=== PATIENT | female | born 1970 | race Caucasian/White ===

== ENCOUNTER → 2019-07-20 12:30 | Outpatient (BNVA) | payer OTHER, SELFPAY | PROVIDERS: Family Provider Family Medicine; PCP Family Medicine; Referring Provider Family Medicine; Visit Provider Podiatrist Foot & Ankle Surgery | DX: L60.0 Ingrowing nail (principal); B35.1 Tinea unguium | CPT/HCPCS: 87210 ==

== ENCOUNTER 2021-11-28 12:34 | Outpatient (CLI) | payer OTHER, SELFPAY ==
--- NOTE | 2021-11-28 12:52 | CTR_ITS ---
PROCEDURE INFORMATION: Exam: CT Temporal Bones Without Contrast. Exam date and time: 11/28/2021 1:02 PM Age: 51 years old Clinical indication: Pain; Other: Ear; Prior surgery; Surgery type: Tubes; Additional info: Chronic serous otitis media, left ear TECHNIQUE: Imaging protocol: Computed tomography of the temporal bones without contrast. Radiation optimization: All CT scans at this facility use at least one of these dose optimization techniques: automated exposure control; mA and/or kV adjustment per patient size (includes targeted exams where dose is matched to clinical indication); or iterative reconstruction. COMPARISON: No relevant prior studies available. RADIATION DOSE METRICS: Total DLP (mGy-cm): 306.93 FINDINGS: Right inner ear: Normal. Right ossicles and middle ear: Normal. The middle ear ossicles are intact. Right external auditory canal: Normal. Right facial nerve canal: Normal. Right jugular foramen: No jugular dehiscence. Right carotid canal: No aberrant carotid canal. Right mastoid air cells: Normal. No mastoid effusions. Left inner ear: Normal. Left ossicles and middle ear: As best seen on series 11 images 48-51, there is a small focus of soft tissue in the left middle ear although as this is a very small focus of soft tissue, it is located within Prussak's space which appears slightly widened compared to the contralateral side. No bone erosion is identified. The left tympanic membrane is thickened. Left external auditory canal: Normal. Left facial nerve canal: Normal. Left jugular foramen: No jugular dehiscence. Left carotid canal: No aberrant carotid canal. Left mastoid air cells: Normal. No mastoid effusions. Soft tissues: CT/CT temporal bone wo con* [id number] IMPRESSION: Small amount of soft tissue in Prussak's space on the left which is slightly widened. The tympanic membrane is thickened. This could represent a early cholesteatoma. There is no bone erosion which would be more definitive.
== END 2021-11-28 12:35 | disposition home or self-care (01) ==
LOC: RAD 12:35
PROVIDERS: Family Provider Family Medicine; PCP Family Medicine; Visit Provider Specialist
DX: H65.22 Chronic serous otitis media, left ear (principal)
CPT/HCPCS: 70480

== ENCOUNTER 2022-01-06 13:21 | Outpatient (CLI) | payer OTHER, SELFPAY ==
--- NOTE | 2022-01-06 13:52 | ECG_ITS ---
[facility] Test Date: 2022-01-06 Pat Name: Alyx Hoang Department: Room: Gender: Female [employer]: : 1970 Requested By: Sarmad Skelton Order Number: [id number] Anthony MD: Oneal Joshua M.D. Measurements Intervals [place] Rate: 95 P: 20 WV: 115 QRS: 51 QRSD: 78 T: 6 QT: 348 QTc: 439 Interpretive Statements SINUS RHYTHM WITH SHORT W[place] INTERVAL NONSPECIFIC ST & T-WAVE ABNORMALITY No previous ECG available for comparison Electronically Signed On 01-07-2022 8:21:31 CDT by Oneal Joshua M.D. [id number] f
== END 2022-01-06 13:22 | disposition home or self-care (01) ==
PROVIDERS: PCP Family Medicine; Visit Provider Specialist
DX: H72.02 Central perforation of tympanic membrane, left ear (principal); R94.31 Abnormal electrocardiogram [ECG] [EKG]
CPT/HCPCS: 93005

== ENCOUNTER → 2022-07-21 10:59 | Outpatient (BNVA) | payer OTHER, SELFPAY | PROVIDERS: PCP Family Medicine; Referring Provider Family Medicine; Visit Provider Internal Medicine | DX: E11.9 Type 2 diabetes mellitus without complications (principal); E16.2 Hypoglycemia, unspecified; E78.2 Mixed hyperlipidemia | CPT/HCPCS: 36415; 80053; 80061; 82044; 83036 ==

== ENCOUNTER 2022-08-19 10:32 | Outpatient (CLI) | payer OTHER, SELFPAY ==
--- NOTE | 2022-08-19 10:51 | MR_ITS ---
WS: [id number] MRI RIGHT SHOULDER with and without contrast. HISTORY: STRAIN OF R ROTATOR CUFF, prior surgery. COMPARISON: Shoulder radiograph 07/21/2022. TECHNIQUE: Pre and postcontrast imaging. Postcontrast imaging consists of MultiHance 16 mL IV. Multip lanar multisequence imaging is performed. Very minimal narrowing of the AC joint. No significant hypertrophic bone formation. There is a small caliber distal clavicle. Very small amount of fluid in the subacromial bursa. No os acromion. Biceps tendon is normally positioned at the bicipital groove. Adjacent to the biceps tendon there is a small loose body measuring 5 mm which may be micrometallic artifact from the prior shoulder surgery. There is extensive micrometallic artifact in e soft tissues surrounding the shoulder. No definite rot ator cuff tears are identified. There is mild increased signal in the distal supraspinatus and infras pinatus tendons. No tear or retraction. No muscle atrophy or edema. Subscapularis tendon is normal. Abnormal appearance of the labrum. There is loss of the normal cortex. Subchondral cystic changes in the glenoid. There are also a few small loose bodies centered around the humeral head and within the small joint effusion which may be micrometallic artifacts or small intra-articular loose bodies. No enhancing mass is identified. MR/MR shoulder RT wo/w con [id number] IMPRESSION: 1. 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 Loss of the normal cartilage and subchondral cystic changes. 2. Numerous small loose bodies surrounding the shoulder and in the shoulder jabari int. Some of these are related to micrometallic artifact from prior surgery. Ot hers may be small loose bodies related to the cartilage deposition. 3. Mild tendinopathy distal supraspinatus and infraspinatus tendons. No full-t hickness rotator cuff tears. 4. Mild biceps tenosynovitis. There is a small loose body adjacent to the janelle ps tendon versus micrometallic artifact.
[2022-08-19] MEDS: gadobenate dimeglumine 20 mL vial IV (12:04)
== END 2022-08-19 10:33 | disposition home or self-care (01) ==
PROVIDERS: PCP Family Medicine; Visit Provider Nurse Practitioner
DX: S46.011A Strain of muscle(s) and tendon(s) of the rotator cuff of right shoulder, initial encounter (principal); M19.011 Primary osteoarthritis, right shoulder; M24.011 Loose body in right shoulder; M67.911 Unspecified disorder of synovium and tendon, right shoulder; M75.21 Bicipital tendinitis, right shoulder; X58.XXXA Exposure to other specified factors, initial encounter
CPT/HCPCS: 73223; A9577